=== PATIENT | male | born 1945 | race Caucasian/White ===

== ENCOUNTER 2018-01-11 09:03 | Outpatient (CLI) | payer MEDICARE ==
--- NOTE | 2018-01-11 11:05 | RAD ---
TWO VIEWS LEFT HIP: HISTORY: Fall. Pain. COMPARISON: 06/05/15. FINDINGS: There are 2 internal fixation screws that traverse the left hip, without evidence of perihardware rosanna ency. An acute fracture is not appreciated. Stable heterotopic bone formation. Stable vascular calcifications. Visualized left bony pelvis and right bony pelvis are unremarkable. IMPRESSION: No fracture. POS: [facility]
== END 2018-01-11 09:04 | disposition home or self-care (01) ==
LOC: RAD-FRANK 09:03
PROVIDERS: ATTEND Nurse Practitioner Family
DX: M25.552 Pain in left hip (principal)

== ENCOUNTER 2018-01-28 16:02 | Outpatient (CLI) | payer MEDICARE ==
--- NOTE | 2018-01-28 16:44 | RAD ---
RIGHT HIP 2 VIEWS: HISTORY: Fall with injury and pain to right hip. FINDINGS: Femoral head contour is normally maintained. No evidence of fracture identified. IMPRESSION: No acute fracture identified. POS: [facility]
== END 2018-01-28 16:03 | disposition home or self-care (01) ==
LOC: RAD-FRANK 16:02
PROVIDERS: ATTEND Nurse Practitioner Family
DX: M25.551 Pain in right hip (principal)

== ENCOUNTER 2018-04-09 08:51 | Outpatient (CLI) | payer MEDICARE, OTHER ==
--- NOTE | 2018-04-09 10:13 | RAD ---
RADIOGRAPH CHEST 2 VIEWS: Date: 04/09/18. Time: 9:42 a.m. HISTORY: A 73-year-old male with cough. COMPARISON: 03/12/16. FINDINGS: Focal posterior pleural thickening demonstrated on the lateral view, at the mid-lower lung zone. Unc ertain whether this is on the right or left. This is unchanged since the previous study. Old compre ssion fracture of one of the mid thoracic vertebral bodies is again noted. No pulmonary edema or con solidation. Thickening of the right lateral pleural stripe, unchanged. 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 The heart is shif ankit to the left. Probably no cardiomegaly. No pulmonary vascular engorgement. No pneumothorax. No interval change overall. IMPRESSION: 1. Chronic Right pleural thickening. 2. Right middle lobe pulmonary scar and chronic volume loss. 3. No acute findings. 4. No interval change overall since 03/12/16. JN [] POS: [facility]
== END 2018-04-09 08:52 | disposition home or self-care (01) ==
LOC: RAD-FRANK 08:51
PROVIDERS: ATTEND Nurse Practitioner Family
DX: J92.9 Pleural plaque without asbestos (principal); J98.4 Other disorders of lung
CPT/HCPCS: 71046